=== PATIENT | female | born 1990 | race Two or more races ===

== ENCOUNTER 2024-06-30 18:41 | Emergency (ER) | payer MEDICAID, SELFPAY ==
[2024-06-30 18:42] VITALS: BMI 36.7
[2024-06-30 19:14] VITALS: BP 115/71; PULSE 77; RESP 18; TEMP 37; O2SAT 98
--- NOTE | 2024-06-30 19:31 | EDNOTE_ITS ---
ED OB Contraction Preg RMI/HPI General Chief complaint: Abdominal Pain Stated complaint: WANTS TEST, ABD PAIN WITH VAG BLEED Time Seen by Provider: 06/30/24 19:26 Arrival date/time: 06/30/24 18:41 33F with history of irregular periods presents to ED with pelvic pain and vaginal bleeding. Patient just wants to check if she's . Limitations: no limitations Related Data Home Medications ?Medication ?Instructions ?Recorded ?Confirmed prenat.vits,cherie,[id number] 1 tab PO QDAY 04/16/20 04/16/20 Previous Rx's ?Medication ?Instructions ?Recorded artificial tears(hypromellose) 0.5 1 drp ophthalmic (e ye) TID PRN dry 10/03/22 % eye drops (Tears Lubricant) eyes #15 mL ibuprofen 600 mg tablet 600 mg PO TID PRN pain #30 t abs 10/03/22 Allergies Allergy/AdvReac Type Severity Reaction Status Date / Time No Known Allergies Allergy Verified 06/30/24 18:45 Review of Systems Review of Systems Systems Reviewed: All systems reviewed, normal except as documented Constitutional Constitutional: Reports system reviewed and no additional complaints, except as documented, Denies fever(s) and Denies headache(s) ENT Ears, Nose, Mouth, and Throat: Denies disequilibrium and Denies headache(s) Cardiovascular Cardiovascular: Reports system reviewed and no additional complaints, except as documented, Denies chest pain and Denies dyspnea Respiratory Respiratory: Reports system reviewed and no additional complaints, except as documented, Denies cough and Denies dyspnea Gastrointestinal Gastrointestinal: Reports system reviewed and no additional complaints, except as documented, Denies abdominal pain, Denies nausea and Denies vomiting Genitourinary Genitourinary: Reports as per HPI, Reports abnormal vaginal bleeding and Reports pelvic pain Neurologic Neurologic: Reports system reviewed and no additional complaints, except as documented, Denies confusion, Denies disequilibrium and Denies headache(s) Psychiatric Psychiatric: Denies confusion Past Medical History Past Medical History NEUROLOGIC: Negative Neurological Disorders CARDIAC: Negative Cardiac Disorders or Congestive Heart Failure RESPIRATORY: Negative Chronic Obstructive Pulmonary Disease (COPD) GASTROINTESTINAL: Negative Gastrointestinal Disorders, Hepatitis or Colorectal Cancer GENITOURINARY: Negative Genitourinary Disorders, Renal Disease or Prostate Cancer REPRODUCTIVE: Negative Breast Cancer, Endometriosis, Genital Herpes, Pelvic In flammatory Disease, Previous Pregnancies, Testicular Cancer or Uterine Prolapse MUSCULOSKELETAL: Negative Musculoskeletal Disorders or Bone Cancer ENDOCRINE: Negative Endocrine Disorders, Diabetes Mellitus Type 1 or Diabetes Mellitus Type 2 HEMATOLOGIC: Negative Blood Disorders OTHER HISTORY: Positive Hospitalization (CHILDBIRTH); Negative Autoimmune Disease, Down Syndrome, Developmental Delay, Shingles, Falls, Blood Transfusions, Blood Transfusion Reaction, Anesthesia Reactions, Organ Transplant, Chemotherapy, Radiation Therapy, Hyperbaric Therapy, MRSA, VRSA, Vancomycin-Resistant Enterococci, Human Immunodeficiency Virus (HIV), Chicken Pox, Measles, Mumps, Rubella (Ukrainian Measles), Pertussis, Clostridium Difficile, Cancer, Breast Cancer, Cervical Cancer, Colorectal Cancer, Lung Cancer, Ovarian Cancer, Prostate Cancer or Testicular Cancer Family History FAMILY HISTORY: Negative Family Psychiatric Problems, Family Respiratory Disorders, Family Cardiac Disorders, Family Gastrointestinal Problems, Family Cancer, Family Surgery or Family Anesthesia Reaction Surgical History SURGICAL: Negative Section or Organ Transplant Social History SMOKING STATUS: Never smoker SECOND HAND EXPOSURE: No ED Exam General Limitations: Present no limitations General appearance: Present alert and in no apparent distress Head Head exam: Present atraumatic Eye Eye exam: Present normal appearance, PERRL and EOMI ENT ENT exam: Present normal exam, normal oropharynx and mucous membranes moist Neck Neck exam: Present normal inspection, full ROM and trachea midline Chest Chest inspection: Present normal inspection and symmetric chest wall rise Respiratory Respiratory exam: Present normal lung sounds bilaterally Cardiovascular Cardiovascular exam: Present regular rate, normal rhythm and normal heart sounds Abdominal Exam Abdominal exam: Present soft and normal bowel sounds Extremities Exam Extremities exam: Present normal inspection and full ROM Back Exam Back exam: Present normal inspection and full ROM Neurological Exam Neurological exam: Present alert, oriented X3 and CN II-XII intact Psychiatric Psychiatric exam: Present normal affect and normal mood Skin Skin exam: Present warm, dry, intact and normal color Course Quality Measures none Orders Category Date Time Status HCG Qualitative,Urine Stat Lab 06/30/24 19:27 Completed Vital Signs Vital signs: Vital Signs Temperature 98.6 F 06/30/24 19:14 Pulse Rate 77 06/30/24 19:14 Respiratory Rate 18 06/30/24 19:14 Blood Pressure 115/71 06/30/24 19:14 Pulse Oximetry (%) 98 06/30/24 19:14 Oxygen Delivery Method Room Air 06/30/24 19:14 O2 at 98% on RA and WNLs Vaginal Bleeding MDM Narrative MDM Narrative: 33F with history of irregular periods presents to ED with pelvic pain and vaginal bleeding. Patient just wants to check if she's . Physical exam reveals well-appearing female. Patient is afebrile, calm, and alert. HCG neg. Patient data External records reviewed:: [facility] previous records Clinical information provided by:: patient Social determinants that could affect healthcare access:: none Patient has the following chronic illnesses:: none How is presenting disease/condition affected by chronic disease/condition?: no chronic disease Evaluation data The following diagnostics were reviewed and interpreted by me:: lab results Lab and/or radiology exams considered but not ordered:: ordered Interpretation Summary: above Medications / Prescriptions Medications or Prescriptions considered but not ordered:: not ordered Medication administrations:: n/a Consultations Consultation(s) initiated? (list below): No Diagnosis Vaginal Bleeding Differential Diagnosis: missed , threatened , dysfunctional uterine bleeding, menometrorrhagia, incomplete , ectopic without intrauterine and vaginal bleeding Most likely diagnosis given after review of the tests above:: vaginal bleeding Admission Indicated Admission indicated?: not indicated Admission Request Was there a request for admission?: No Disposition Plan Disposition Plan: Discharge Discharge Attestation Discharge Attestation: The patient and all family members were given an opportunity to ask questions and understood the discharge instructions. Discharge instructions specifically effects, indications for sooner follow up or return to the emergency department, and the expected course of current diagnosis. Patient condition: Stable Discharge Plan Plan Patient Disposition: HOME (Self Care) Discharge Disposition comment: Stable Prescriptions/Referrals Prescriptions/Med Rec: No Action Vitamin Tablet 1 tab PO QDAY ibuprofen 600 mg tablet 600 mg PO TID PRN (Reason: pain) Qty: 30 0RF Tears Lubricant Eye Drop 0.5 % drops 1 drp ophthalmic (eye) TID PRN (Reason: dry eyes) Qty: 15 0RF Referrals: Felice Sánchez MD [Primary Care Provider] - In 1 week Problem List Clinical Impression: Vaginal bleeding Patient/Caregiver Discharge Instructions Education Materials: ED Dysfunctional Uterine Bleeding Additional Instructions: Please follow-up with PCP/OBYGN within 24-48 hours and return immediately if symptoms worsen. Print Language: Gambian Stand Alone Forms: Patient Portal Info Letter HERMAN/JONATHAN Supervising Physician BEULAH Supervising Physician: Dr. Gutierres
[2024-06-30 20:12] LABS: HCG Qualitative,Urine Negative
== END 2024-06-30 20:23 | disposition home or self-care (01) ==
PROVIDERS: Physician Assistant; Emergency Provider Emergency Medicine; PCP Family Medicine
DX: N93.9 Abnormal uterine and vaginal bleeding, unspecified (principal)
CPT/HCPCS: 81025; 99283

== ENCOUNTER 2024-08-07 06:55 | Emergency (ER) | payer MEDICAID, SELFPAY ==
[2024-08-07 06:57] VITALS: BMI 36.7
[2024-08-07 07:25] VITALS: BP 108/70; PULSE 67; RESP 18; TEMP 36.9; O2SAT 97
--- NOTE | 2024-08-07 07:36 | PD.EDRME ---
Rapid Medical Screening Exam RME Arrival date/time: 08/07/24 06:55 This is a 33-year-old female that comes in with complaints of abdominal pain that started last night. Patient's complaint of abdominal pain in the right upper quadrant. Patient also has complaints of nausea. Patient denies urinary symptoms. Patient does not know if she is . I have greeted and performed a focused initial assessment of this patient. Initial appropriate labs ordered at this time. A comprehensive ED assessment and evaluation of the patient and analysis of all test and completion of medical decision making process will be conducted by additional ED provider. Chief Complaint: Abdominal Pain Time Seen by Provider: 08/07/24 07:07 Vital signs: Vital Signs Temperature 98.4 F 08/07/24 07:25 Pulse Rate 67 08/07/24 07:25 Respiratory Rate 18 08/07/24 07:25 Blood Pressure 108/70 08/07/24 07:25 Pulse Oximetry (%) 97 08/07/24 07:25 Oxygen Delivery Method Room Air 08/07/24 07:25
[2024-08-07 08:12] LABS: Collection Type, Urine Voided
[2024-08-07 08:33] LABS: Alanine Aminotransferase 74 U/L (10-49); Albumin, Serum 4.5 gm/dL (3.5-5.0); Albumin/Globulin Ratio 1.8 (1.2-2.2); Alkaline Phosphatase 87 U/L (46-116); Anion Gap 9 (7-16); Aspartate Amino Transferase 34 U/L (0-34); BUN/Creatinine Ratio 17 Ratio (12-20); Bilirubin,Total 0.3 mg/dL (0.3-1.2); Blood Urea Nitrogen 10 mg/dL (9-23); Calcium 9.1 mg/dL (8.3-10.6); Calcium (Corrected) 9.1 mg/dL (8.5-10.1); Carbon Dioxide 23.6 mMol/L (20.0-31.0); Chloride 104 mMol/L (98-107); Creatinine (Component) 0.6 mg/dL (0.6-1.3); Estimated Creatinine Clearance 131.7 mL/min (>60); Globulin 2.5 gm/dL (2.3-3.5); Glucose 139 mg/dL (74-106); Lipase 29 U/L (12-53); Osmolality,Calculated 274 (275-295); Sodium 137 mMol/L (136-145); eGFR > 60 See Note
[2024-08-07 08:39] LABS: Basophils % (Auto) 1 % (0-2.5); Eosinophils # (Auto) 0.2 Thou/mm3 (0.0-0.5); Eosinophils % (Auto) 2 % (0-10); Hematocrit 36.7 % (36.0-46.0); Hemoglobin 12.7 g/dL (12.0-16.0); Immature Granulocytes % (Auto) 0 % (0-0); Immature Granulocytes Auto 0.02 Thou/mm3 (0.00-0.00); Lymphocytes # (Auto) 1.8 Thou/mm3 (1.0-4.8); Lymphocytes % (Auto) 25 % (10-50); Mean Corpuscular HGB Conc 34.6 g/dl (31.0-37.0); Mean Corpuscular Hemoglobin 27.9 pg (25.0-35.0); Mean Corpuscular Volume 81 fL (80-100); Monocytes # (Auto) 0.3 Thou/mm3 (0.0-0.8); Monocytes % (Auto) 4 % (0-12); Neutrophils # (Auto) 4.8 Thou/mm3 (1.8-7.7); Neutrophils % (Auto) 68 % (37-80); Nucleated Red Blood Cell % 0 /100 WBC (0); Platelet Count 208 Thou/mm3 (140-440); RDW Standard Deviation 38.3 fL (36.4-46.3); Red Blood Count 4.56 Miln/mm3 (4.00-5.20); White Blood Count 7.1 Thou/mm3 (3.6-11.0)
[2024-08-07 08:44] LABS: Bilirubin,Urine Negative (Negative); Blood,Urine Negative (Negative); Clarity,Urine Clear (Clear/Hazy); Color,Urine Lt-Yellow (Lt Yel-Yel); Culture Indicated,Urine Not Indicated; Glucose, Urine Negative (Negative); Ketones,Urine Negative (Negative); Leukocyte Esterase,Urine Positive (Negative); Nitrite,Urine Negative (Negative); Protein,Urine Trace (Neg - Trace); RBC,Urine 3 /hpf (0-3); Specific Gravity,Urine 1.028 (1.001-1.035); Squamous Epithelial Cell,Urine 11 /hpf (0-5); Urobilinogen,Urine Negative mg/dL (0.0-1.0); WBC,Urine 8 /hpf (0-5)
[2024-08-07 08:46] LABS: HCG Qualitative,Urine Negative
[2024-08-07 08:56] LABS: Amphetamine/Methamp Scrn,U Negative (Negative); Barbiturate Screen,Urine Negative (Negative); Benzodiazepines Screen,Urine Negative (Negative); Benzoylecgonine Screen, Ur Negative (Negative); Fentanyl Screen,Urine Negative (Negative); Opiate Screen,Urine Negative (Negative); THC Screen,Urine Negative (Negative)
[2024-08-07 10:33] VITALS: BP 112/64; PULSE 80; RESP 18; TEMP 36.6; O2SAT 100
--- NOTE | 2024-08-07 10:38 | EDNOTE_ITS ---
ED General RME/HPI General Chief complaint: Abdominal Pain Stated complaint: RUQ ABD PAIN Time Seen by Provider: 08/07/24 07:07 Arrival date/time: 08/07/24 06:55 Limitations: no limitations RME / HPI RME / HPI narrative: 08/07/24 06:55 This is a 33-year-old female that comes in with complaints of abdominal pain that started last night. Patient's complaint of abdominal pain in the right upper quadrant. Patient also has complaints of nausea. Patient denies urinary symptoms. Patient does not know if she is . I have greeted and performed a focused initial assessment of this patient. Initial appropriate labs ordered at this time. A comprehensive ED assessment and evaluation of the patient and analysis of all test and completion of medical decision making process will be conducted by additional ED provider. DR. JOHN MAIN ED EVALUATION: 33 year old female presents to the Emergency Department with complaint of right upper quadrant pain intermittently since last night, worse this morning at 4 AM. No other symptoms reported at this time. Last menstrual was last week, normal. Denies . PMHx: Denies any PMHx, surgeries, daily medications, or known allergies. No significant family history. Social Hx: No tobacco, alcohol, or substance use. Related Data Home Medications ?Medication ?Instructions ?Recorded ?Confirmed prenat.vits,cherie,[id number] 1 tab PO QDAY 04/16/20 04/16/20 Previous Rx's ?Medication ?Instructions ?Recorded artificial tears(hypromellose) 0.5 1 drp ophthalmic (e ye) TID PRN dry 10/03/22 % eye drops (Tears Lubricant) eyes #15 mL ibuprofen 600 mg tablet 600 mg PO TID PRN pain #30 t abs 10/03/22 Allergies Allergy/AdvReac Type Severity Reaction Status Date / Time No Known Allergies Allergy Verified 08/07/24 07:01 Review of Systems Review of Systems Systems Reviewed: All systems reviewed, normal except as documented Past Medical History Past Medical History OTHER HISTORY: Positive Hospitalization Social History SMOKING STATUS: Never smoker SECOND HAND EXPOSURE: No SUBSTANCE USE: does not use ALCOHOL: Never ED Exam General Limitations: Present no limitations General appearance: Present alert and in no apparent distress Head Head exam: Present atraumatic, normocephalic and normal inspection Eye Eye exam: Present normal appearance, PERRL and EOMI ENT ENT exam: Present normal exam, normal oropharynx and mucous membranes moist Neck Neck exam: Present normal inspection, full ROM and trachea midline Chest Chest inspection: Present normal inspection and symmetric chest wall rise Respiratory Respiratory exam: Present normal lung sounds bilaterally Cardiovascular Cardiovascular exam: Present regular rate, normal rhythm and normal heart sounds Abdominal Exam Abdominal exam: Present soft, normal bowel sounds and other (obese); Absent tenderness Extremities Exam Extremities exam: Present normal inspection and full ROM Back Exam Back exam: Present normal inspection and full ROM Neurological Exam Neurological exam: Present alert, oriented X3 and CN II-XII intact Psychiatric Psychiatric exam: Present normal affect and normal mood Skin Skin exam: Present warm, dry, intact and normal color Course Quality Measures none Orders Category Date Time Status CT abdomen pelvis wo con Stat Exams 08/07/24 11:25 Completed US gall bladder Stat Exams 08/07/24 10:49 Completed CBC Stat Lab 08/07/24 08:00 Completed Comprehensive Metabolic Panel Stat Lab 08/07/24 08:00 Completed Drug Screen,Urine Stat Lab 08/07/24 07:52 Completed HCG Qualitative,Urine Stat Lab 08/07/24 07:52 Completed Lipase Stat Lab 08/07/24 08:00 Completed Urinalysis, C/S if Indicated Stat Lab 08/07/24 07:52 Completed Ketorolac Inj [Toradol Inj] Med 08/07/24 10:49 Discontinued 15 mg IVP X1 ONE Ondansetron Inj [Zofran Inj] Med 08/07/24 10:49 Discontinued 4 mg IVP X1 ONE Pantoprazole Inj [Protonix Inj] Med 08/07/24 10:49 Discontinued 40 mg IVP X1 ONE Sodium Chloride 0.9% 1000 ml [Ns] 1,000 ml Med 08/07/24 10:49 Discontinued IV 999 mls/hr Vital Signs Vital signs: Vital Signs Temperature 98.4 F 08/07/24 07:25 Pulse Rate 67 08/07/24 07:25 Respiratory Rate 18 08/07/24 07:25 Blood Pressure 108/70 08/07/24 07:25 Pulse Oximetry (%) 97 08/07/24 07:25 Oxygen Delivery Method Room Air 08/07/24 07:25 Discharge Plan Plan Patient Disposition: HOME (Self Care) Patient condition on transfer: Stable Prescriptions/Referrals Prescriptions/Med Rec: No Action Vitamin Tablet 1 tab PO QDAY ibuprofen 600 mg tablet 600 mg PO TID PRN (Reason: pain) Qty: 30 0RF Tears Lubricant Eye Drop 0.5 % drops 1 drp ophthalmic (eye) TID PRN (Reason: dry eyes) Qty: 15 0RF Referrals: No Primary/Family,Physician [Primary Care Provider] - In 1 week Problem List Clinical Impression: Cholelithiasis Patient/Caregiver Discharge Instructions Education Materials: ED Gallstones with Biliary Colic Additional Instructions: Please follow-up with your primary care physician within 2-3 days, get a referral from your PCP for a general surgeon to follow up on your cholelithiasis. Return to the Emergency Department as needed. Take Tylenol 500 mg 2 tabs every 6 hours PLUS Advil 200 mg gel 2 tablets as needed for pain. Print Language: Belarusian Stand Alone Forms: Kandi Award Info., Work/School Release, Patient Portal Info Letter MDM Narrative [facility] hospital course: IMagaly, am scribing for and in the presence of Dr. John. Patient will be discharged with cholelithiasis. They will follow up with their PCP and get a referral with a general surgeon. Abdominal pain has resolved. Clinical Information Provided by patient and spouse Medical Records Reviewed [facility] Meds/Rx Considered, not Ordered None Labs/Rad/Tests considered, not Ordered None Chronic Illness/Social Conditions Add or document further as needed: PMHx: Denies any PMHx, surgeries, daily medications, or known allergies. No significant family history. Social Hx: No tobacco, alcohol, or substance use. EKG EKG not done Lab Interpretation Labs: see narrative above Imaging Imaging interpretation: see narrative above Radiology reports / interpretation(s): Procedure(s): US gall bladder Accession Number(s): [id number] cc: Braxton John MD; Elieser Valentin MD; NO PRIMARY/FAMILY,PHYSICIAN~ Examination: Abdomen sonogram, Limited Date and time of exam: August 07, 2024 at 1108 hrs. Indications: Right lower abdominal pain today Technique: Real-time ferraro scale transabdominal sonographic images of the upper abdomen obtained. Findings: Multiple gallstones. Normal gallbladder wall Common bile duct .6 cm no stones Pancreatic head 2.4 cm Liver 17.3 cm no liver lesions Normal hepatopedal portal venous oh Impression: Cholelithiasis, negative for cholecystitis Mildly enlarged common bile duct clinical correlation advised Dictated By: Elieser Valentin MD ------ Procedure(s): CT abdomen pelvis wo [facility] Accession Number(s): [id number] cc: Braxton John MD; Elieesr Valentin MD; NO PRIMARY/FAMILY,PHYSICIAN~ Examination: CT abdomen and pelvis without contrast. Coronal 3-D reconstructions. Sagittal 2-D reconstructions. Date and time of exam:2024, 1222 hrs. Indications: Right upper abdominal pain today CTDI: vol (mGy): 10.8 DLP: (mGycm): 567 Technique: Axial images of the abdomen have been obtained, 3 mm slice thickness Intravenous contrast material has not been administered. Low dose protocols were performed. One or more of the following dose reduction techniques were used; automated exposure control, adjustment of the mA and/or KV according to patient size, use of iterative reconstruction technique. Findings: Diffuse fatty infiltration throughout the liver Cholelithiasis, gallbladder wall does not appear thickened Spleen is not enlarged. Negative for pancreatitis. No renal or ureteral calculi, no hydronephrosis Aorta normal size 30 mm fat-containing umbilical hernia with possible incarcerated fat Normal appendix No bowel obstruction No diverticulitis Urinary bladder intact Mild osteopenia Impression: Cholelithiasis 30 mm fat-containing umbilical hernia with possible incarcerated fat, clinical correlation advised Dictated By: Elieser Valentin MD Medication Administration(s) Medication Administration History Discontinued Medications Sodium Chloride (Ns) 1,000 mls @ 999 mls/hr IV .Q1H1M ONE Stop: 08/07/24 11:49 Last Infusion: 08/07/24 12:52 Dose: Infused Documented By: Admin: 08/07/24 11:51 Dose: 999 mls/hr Documented By: EF Ketorolac Tromethamine (Ketorolac Inj 30 Mg/Ml Vial) 15 mg IVP X1 ONE Stop: 08/07/24 10:50 Last Admin: 08/07/24 11:52 Dose: 15 mg Documented By: EF Ondansetron HCl (Ondansetron Inj 2 Mg/Ml Inj 2 Ml) 4 mg IVP X1 ONE; Protocol Stop: 08/07/24 10:50 Last Admin: 08/07/24 11:52 Dose: 4 mg Documented By: EF Pantoprazole Sodium (Pantoprazole Inj 40 Mg Vial) 40 mg IVP X1 ONE Stop: 08/07/24 10:50 Last Admin: 08/07/24 11:52 Dose: 40 mg Documented By: EF Diagnosis Differential diagnosis: GERD, gastritis, gallstones Most likely dx, and/or detailed dx discussion: Cholelithiasis Dispositon Disposition: Discharge Home
--- NOTE | 2024-08-07 10:49 | XR_ITS ---
Examination: Abdomen sonogram, Limited Date and time of exam: August 07, 2024 at 1108 hrs. Indications: Right lower abdominal pain today Technique: Real-time ferraro scale transabdominal sonographic images of the upper abdomen obtained. Findings: Multiple gallstones. Normal gallbladder wall Common bile duct .6 cm no stones Pancreatic head 2.4 cm Liver 17.3 cm no liver lesions Normal hepatopedal portal venous oh Impression: Cholelithiasis, negative for cholecystitis Mildly enlarged common bile duct clinical correlation advised
--- NOTE | 2024-08-07 10:55 | PC.NURSE ---
PT CAME IN WITH C/O RUQ ABD PAIN SINCE LAST NIGHT WITH INCREASED PAIN THIS AM. ABDOMEN TENDER TO PALPATION FOR RUQ. DR DORA PEDERSENG PT AT THIS TIME
--- NOTE | 2024-08-07 11:25 | XR_ITS ---
Examination: CT abdomen and pelvis without contrast. Coronal 3-D reconstructions. Sagittal 2-D reconstructions. Date and time of exam:2024, 1222 hrs. Indications: Right upper abdominal pain today CTDI: vol (mGy): 10.8 DLP: (mGycm): 567 Technique: Axial images of the abdomen have been obtained, 3 mm slice thickness Intravenous contrast material has not been administered. Low dose protocols were performed. One or more of the following dose reduction techniques were used; automated exposure control, adjustment of the mA and/or KV according to patient size, use of iterative reconstruction technique. Findings: Diffuse fatty infiltration throughout the liver Cholelithiasis, gallbladder wall does not appear thickened Spleen is not enlarged. Negative for pancreatitis. No renal or ureteral calculi, no hydronephrosis Aorta normal size 30 mm fat-containing umbilical hernia with possible incarcerated fat Normal appendix No bowel obstruction No diverticulitis Urinary bladder intact Mild osteopenia Impression: Cholelithiasis 30 mm fat-containing umbilical hernia with possible incarcerated fat, clinical correlation advised
[2024-08-07] MEDS: SODIUM CHLORIDE 0.9% 1000 ML 1,000 ML 999 ML IV (11:51)
[2024-08-07] MEDS: PANTOPRAZOLE INJ 40 MG VIAL IVP (11:52)
[2024-08-07] MEDS: KETOROLAC INJ 30 MG/ML VIAL 15 MG IVP (11:52)
[2024-08-07] MEDS: ONDANSETRON INJ 2 MG/ML INJ 2 ML 4 MG IVP (11:52)
[2024-08-07 12:17] VITALS: BP 112/64; PULSE 57; RESP 16; TEMP 36.7; O2SAT 99
[2024-08-07 14:45] VITALS: BP 109/72; PULSE 57; RESP 16; O2SAT 98
== END 2024-08-07 14:47 | disposition home or self-care (01) ==
PROVIDERS: Nurse Practitioner Family; Emergency Provider Family Medicine
DX: K80.70 Calculus of gallbladder and bile duct without cholecystitis without obstruction (principal); K42.9 Umbilical hernia without obstruction or gangrene
CPT/HCPCS: 36415; 74176; 76705; 80053; 80307; 81001; 81025; 83690; 85025; 96361; 96374; 96375; 99284; J1885; J2405; J2470; J7030

== ENCOUNTER 2024-09-27 06:30 | Day surgery (SDC) | payer MEDICAID, SELFPAY ==
[2024-09-26 09:09] VITALS: BMI 36.6
[2024-09-26 09:58] LABS: Basophils # (Auto) 0.0 Thou/mm3 (0.0-0.2); Basophils % (Auto) 1 % (0-2.5); Eosinophils # (Auto) 0.4 Thou/mm3 (0.0-0.5); Eosinophils % (Auto) 7 % (0-10); Hematocrit 37.0 % (36.0-46.0); Hemoglobin 12.6 g/dL (12.0-16.0); Immature Granulocytes Auto 0.02 Thou/mm3 (0.00-0.00); Lymphocytes # (Auto) 2.5 Thou/mm3 (1.0-4.8); Lymphocytes % (Auto) 43 % (10-50); Mean Corpuscular HGB Conc 34.1 g/dl (31.0-37.0); Mean Corpuscular Hemoglobin 28.3 pg (25.0-35.0); Mean Corpuscular Volume 83 fL (80-100); Monocytes # (Auto) 0.3 Thou/mm3 (0.0-0.8); Monocytes % (Auto) 6 % (0-12); Neutrophils # (Auto) 2.6 Thou/mm3 (1.8-7.7); Neutrophils % (Auto) 44 % (37-80); Nucleated Red Blood Cell # 0.00 Thou/mm3 (0.00-0.00); Nucleated Red Blood Cell % 0 /100 WBC (0); Platelet Count 236 Thou/mm3 (140-440); RDW Standard Deviation 40.1 fL (36.4-46.3); Red Blood Count 4.46 Miln/mm3 (4.00-5.20); White Blood Count 5.8 Thou/mm3 (3.6-11.0)
[2024-09-26 10:07] LABS: Alanine Aminotransferase 55 U/L (10-49); Albumin, Serum 4.4 gm/dL (3.5-5.0); Albumin/Globulin Ratio 1.8 (1.2-2.2); Alkaline Phosphatase 78 U/L (46-116); Anion Gap 9 (7-16); Aspartate Amino Transferase 24 U/L (0-34); BUN/Creatinine Ratio 13 Ratio (12-20); Bilirubin,Total 0.2 mg/dL (0.3-1.2); Blood Urea Nitrogen 8 mg/dL (9-23); Calcium 9.4 mg/dL (8.3-10.6); Calcium (Corrected) 9.4 mg/dL (8.5-10.1); Carbon Dioxide 25.0 mMol/L (20.0-31.0); Chloride 106 mMol/L (98-107); Creatinine (Component) 0.6 mg/dL (0.6-1.3); Estimated Creatinine Clearance 131.5 mL/min (>60); Globulin 2.4 gm/dL (2.3-3.5); Glucose 110 mg/dL (74-106); Osmolality,Calculated 278 (275-295); Potassium 3.9 mMol/L (3.4-5.1); Sodium 140 mMol/L (136-145); Total Protein 6.8 gm/dL (5.7-8.2); eGFR > 60 See Note
[2024-09-26 13:32] LABS: HCG,Qualitative Serum Negative
[2024-09-27] VITALS (9 sets, daily range): BP systolic 97–123; BP diastolic 66–88; PULSE 59–70; RESP 15–20; TEMP 36.1–36.5; O2SAT 95–99; BMI 36.5
--- NOTE | 2024-09-27 07:30 | CHAP ---
Patient was very nervous as this was her first experience with surgery. I spoke with her and gave her some assurance and comfort. Then we talked briefly about her children. I prayed with her about the blessing yet to come.
--- NOTE | 2024-09-27 09:18 | SUR.PHASEI ---
0918: Pt. AAOx4, vitals stable, breathing unlabored, no complaint of pain or nausea, x4 dermabond sites to ABD CDI, no active bleed noted, report received from MD Aguilar and Russell REID.
--- NOTE | 2024-09-27 09:33 | PD.SUROPNT ---
Date of Procedure 09/27/24 Pre Op Diagnosis Symptomatic cholelithiasis Post Op Diagnosis Cholelithiasis with cholecystitis Fatty liver Procedure Laparoscopic cholecystectomy Findings Moderately distended gallbladder with gallstones and chronic cholecystitis. Liver was fatty in appearance, not enlarged Procedure Description Patient was brought into the operating room in supine position. After administration of general endotracheal anesthesia abdomen was prepped and draped in standard surgical manner. A Veress needle was inserted through the umbilicus and pneumoperitoneum was obtained up to 15 mmHg. The Veress needle was then removed, a 5 mm infraumbilical incision was made and the 5mm trocar was inserted. Laparoscopic camera was placed. Under direct visualization a laparoscopic camera a 10 mm trocar was placed in subxiphoid and two 5 mm trocars placed in right upper quadrant. Liver was fatty in appearance, however was not enlarged. The gallbladder was identified and was noted to be moderately distended with gallstones and chronic cholecystitis. It was retracted cephalad and laterally. Dissection started near the infundibulum of gallbladder where cystic duct and gallbladder junction clearly identified. The cystic duct was circumferentially dissected off the peritoneum and surrounding inflammatory tissue. The critical view of safety was clearly demonstrated. Cystic duct was then divided between 2 endoclips proximally and one distally. The cystic artery was similarly dissected and divided. The gallbladder was then from the liver bed using electrocautery. The gallbladder was then placed inside an Endo Catch and removed from the abdomen utilizing subxiphoid trocar site. The area was copiously and thoroughly washed and irrigated, all the fluid was suctioned and the suction fluid returned clear. Hemostasis achieved using electrocautery. Endoclips noted be in place and intact without any bleeding or any leakage. Hemostasis was adequate and satisfactory. The subxiphoid trocar sites fascial defect was closed with 0 Vicryl using Endo Closure device. Instruments and trocars removed, pneumoperitoneum was evacuated and the incisions closed with 4-0 Monocryl in subcuticular fashion. Instrument needle and sponge counts were all reported to be correct X2. Patient tolerated the procedure well, was extubated, breathing spontaneously and without difficulty and was transferred to postanesthesia care in stable condition. Anesthesia GETA and local Pathology / specimen Other (Gallbladder and contents) Estimated Blood Loss 10 Condition Stable Disposition PACU Surgeon Miladis Hurtado MD Surgical Staff Operation Date: 09/27/24 08:30 Case Staff Anesthesiologist: Tommy Aguilar RN First Assistant: Krupa Cruz
[2024-09-27] MEDS: fentaNYL CIT INJ 50 mCg/ML AMP 2ML 25 MCG IVP (09:54)
--- NOTE | 2024-09-27 10:40 | SUR.PHASEII ---
1040: Pt. AAOx4, vitals stable, breathing unlabored, no complaint of pain or nausea, x4 dermabond sites to ABD CDI, no active bleed noted, pt. tolerated sips of water well, pt. ambulated to wheelchair with steady gait and no assist, no complications. Gave discharge instructions to the pt. and her ride, both verbalized understanding and had no further questions. Pt. left with all personal belongings.
== END 2024-09-27 10:40 | disposition home or self-care (01) ==
PROVIDERS: PCP Family Medicine; Referring Provider Surgery; Visit Provider Surgery
PROC: 0FT44ZZ Resection of Gallbladder, Percutaneous Endoscopic Approach (ICD-10-PCS; CPT 47562; principal; 2024-09-27 08:30)
DX: K80.10 Calculus of gallbladder with chronic cholecystitis without obstruction (principal); K76.0 Fatty (change of) liver, not elsewhere classified
CPT/HCPCS: 47562; 36415; 80053; 84703; 85025; A4217; A4649; J0131; J0694; J1100; J1885; J2250; J2405; J2704; J3010; J3490